=== PATIENT | male | born 1975 | race American Indian/Alaskan Native ===

== ENCOUNTER 2021-01-19 04:56 | Emergency (ER) | payer BC, OTHER ==
--- NOTE | 2021-01-19 05:32 | Emergency Department Report ---
ED General Adult HPI - General Stated complaint: RT THUMB SWOLLEN/PAINFUL Time Seen by Provider: 01/19/21 05:29 - History of Present Illness Initial comments: 45-year-old -[place] male patient presents with right thumb pain after plywood fell on the spine at work 4 days ago. He denies any loss of sensation or difficulty moving his thumb. Patient rates his pain as a 9/10 in severity. No numbness or tingling per patient. - Related Data Previous Rx's Medication Instructions Recorded Last Taken Type HYDROcodone/APAP 5-325 [[place] 1 each PO Q6HR PRN #16 tablet 03/24/14 Unknown Rx 5/325 mg] Naproxen 500 mg PO BID PRN #14 tablet 01/19/21 Unknown Rx Allergies Allergy/AdvReac Type Severity Reaction Status Date / Time No Known Allergies Allergy Unverified 03/23/14 18:59 ED Review of Systems ROS: Stated complaint: RT THUMB SWOLLEN/PAINFUL Other details as noted in HPI Musculoskeletal: joint swelling, arthralgia Skin: denies: change in color ED Past Medical Hx - Past Medical History Hx Hypertension: Yes - Surgical History Additional Surgical History: sinus - Social History Smoking Status: Current Every Day Smoker Substance Use Type: None - Medications Home Medications: Home Medications Medication Instructions Recorded Confirmed Last Taken Type HYDROcodone/APAP 5-325 [[place] 1 each PO Q6HR PRN #16 tablet 03/24/14 Unknown Rx 5/325 mg] Naproxen 500 mg PO BID PRN #14 tablet 01/19/21 Unknown Rx ED Physical Exam - General General appearance: alert, in no apparent distress - Head Head exam: Present: atraumatic, normocephalic - Eye Eye exam: Present: normal appearance - Respiratory Respiratory exam: Absent: respiratory distress - Cardiovascular Cardiovascular Exam: Present: regular rate - Extremities Exam Extremities exam: Present: other (Tenderness to palpation noted over right carpal line, no snuffbox tenderness noted, no obvious deformities or swelling noted; patient has normal sensation, range of motion, and perfusion of the thumb) - Neurological Exam Neurological exam: Present: alert, oriented X3 - Psychiatric Psychiatric exam: Present: normal affect, normal mood - Skin Skin exam: Present: warm, dry, intact, normal color. Absent: rash ED Course Vital Signs 01/19/21 05:37 Temperature 98.0 F Pulse Rate 58 L Respiratory 16 Rate Blood Pressure 138/80 O2 Sat by Pulse 97 Oximetry ED Medical Decision Making - Radiology Data Radiology results: report reviewed RIGHT HAND 3 VIEWS INDICATION / CLINICAL INFORMATION: thumb and 1st MC pain after compression injury COMPARISON: None available. FINDINGS: BONES / JOINT(S): No acute fracture or subluxation. No significant arthritis. SOFT TISSUES: No significant abnormality. ADDITIONAL FINDINGS: None. - Medical Decision Making X-rays negative for any acute bony abnormalities. Patient placed in thumb spica splint. Recommend follow-up with orthopedics. Strict return precautions were discussed in detail with patient who verbalized understanding. Critical care attestation.: If time is entered above; I have spent that time in minutes in the direct care of this critically ill patient, excluding procedure time. ED Disposition Clinical Impression: Sprain of right thumb Qualifiers: Encounter type: initial encounter Sprain of finger site: metacarpophalangeal joint Qualified Code(s): S63.641A - Sprain of metacarpophalangeal joint of right thumb, initial encounter Disposition: TO HOME OR SELFCARE Is pt being admited?: No Condition: Stable Instructions: Thumb Sprain, Finger Sprain (ED) Prescriptions: Naproxen 500 mg PO BID PRN #14 tablet PRN Reason: pain Referrals: [facility] [Provider Group] - as needed
[2021-01-19 05:46] VITALS: BP 138/80
--- NOTE | 2021-01-19 06:16 | XRay Report ---
RIGHT HAND 3 VIEWS INDICATION / CLINICAL INFORMATION: thumb and 1st MC pain after compression injury COMPARISON: None available. FINDINGS: BONES / JOINT(S): No acute fracture or subluxation. No significant arthritis. SOFT TISSUES: No significant abnormality. ADDITIONAL FINDINGS: None. Signer Name: Kelechi Thakkar MD Signed: 01/19/2021 6:12 AM Workstation Name: [id number]
== END 2021-01-19 06:40 | disposition home or self-care (01) ==
LOC: ED 04:56
DX: S63.641A Sprain of metacarpophalangeal joint of right thumb, initial encounter (principal); I10 Essential (primary) hypertension; F17.200 Nicotine dependence, unspecified, uncomplicated; Z79.899 Other long term (current) drug therapy; W18.30XA Fall on same level, unspecified, initial encounter; Y93.89 Activity, other specified; Y92.89 Other specified places as the place of occurrence of the external cause; Y99.8 Other external cause status